=== PATIENT | male | born 1935 | race Caucasian/White ===

== ENCOUNTER → 2016-04-09 | Day surgery (SDC) | payer MEDICARE, OTHER ==
[~2016-04-09] VITALS: Ht 172.7 cm; Wt 96.6 kg
[~2016-04-09] MED LIST: ALLE180T33 PO; AMLO10TA2 PO; BUPIVACAINE/EPIN 0.25% 30 ML VIAL XX ONE; CIPR500T19 PO; CYCL10TA PO; DYAZ37.5 PO; FINA5TAB2 PO; FLUCINONIDE TOP; GLYCOPYRROLATE INJ 0.2 MG/ML 2 ML VIAL As Ordered ONE; HYDR25TAB PO; HYDROmorphone HCL 2 MG/ML 1ML VIAL (J1170) As Ordered ONE; LANS30CA PO; LIDOCAINE 2% INJ 100 MG/5 ML SDV (FOR ANES.) As Ordered ONE; LOVA1CAP17 PO; LR 1,000 ML IV SCH; MIDAZOLAM INJ 2 MG/2 ML VIAL (J2250) As Ordered ONE; MOME50SP; MORPHINE 2 MG/ML 1ML SYRINGE IV PRN; NEOSTIGMINE 1MG/ML 5 ML SYRINGE (J2710) As Ordered ONE; NORCO, ANEXSIA 5/325MG TABLET (HYDROcodone/ACETAMINOPHEN) PO PRN; ONDANSETRON 4MG/2ML VIAL (J2405) As Ordered ONE; ONDANSETRON 4MG/2ML VIAL (J2405) IV PRN; PERCOCET 5MG/325MG TAB PO PRN; PRAV40TA2 PO; PROPOFOL 200 MG/20 ML VIAL As Ordered ONE; QUIN40TA5 PO; ROCURONIUM BROMIDE 50 MG/5 ML VIAL As Ordered ONE; ROXI1TAB2 PO; TAMS0.4C2 PO; TYLE650T25 PO; ceFAZolin 1GM INJ (J0690) As Ordered ONE; ceFAZolin SOD 1 GM in D5W MINI-BAG PLUS 50 ML IV ONE; dexameTHASONE 4 MG/ML 1ML VIAL (J1100) As Ordered ONE; fentaNYL 100 MCG/2 ML INJECTION (J3010) IV PRN; fentaNYL 250 MCG/5 ML INJECTION (J3010) As Ordered ONE
[2016-04-09 14:15] VITALS: BP 164/77
--- NOTE | 2016-04-09 14:29 | RO ---
DATE OF PROCEDURE: 04/09/2016 PREPROCEDURE DIAGNOSIS: Left inguinal hernia. POSTPROCEDURE DIAGNOSIS: Left inguinal hernia. PROCEDURE: Open left inguinal hernia repair with mesh. SURGEON: Ki Cardenas MD [employer] OPERATOR: Dr. Butt (helped with retraction, exposure and placement of mesh). ANESTHESIA: General endotracheal anesthesia. ESTIMATED BLOOD LOSS: Minimal. Fluids crystalloid. DESCRIPTION OF PROCEDURE: The patient was brought to the operating room and was given general anesthesia. After adequate anesthesia and preoperative antibiotics were given, the patient was prepped and draped in the usual sterile fashion. Next, a left inguinal incision was made with skin knife. Electrocautery was used cut through dermis, underlying subcutaneous tissue down to the fascia itself. External oblique muscle fascia was opened along the length and out through the external ring. The external oblique was grasped on hemostats and retracted superiorly and inferiorly, and the incision was continued through the external ring with electrocautery on the fascia with my finger underneath this protecting the underlying structures. Next, the patient had been placed in a significant amount of Trendelenburg position, but despite this still had a great deal of tissue/hernia within the left inguinal canal. This was able to be dissected off the cord structures. There is a lipoma of the cord that was dissected free, ligated at its base and then the hernia sac was seen, however, much of this was very attenuated and either was just thickened tissue itself, but the colon was within the hernia and essentially did not open up into the peritoneum as a typical indirect hernia with colon coming down into it and thus I anticipate was in the retroperitoneal position and this was able to be mobilized off surrounding structures and then returned to the peritoneal cavity. However, there was a very large fascial defect at the internal ring, thus a Prolix plug was placed in this area and the edges were sutured superiorly and medially with PDS. However, the vessels were palpated posteriorly and thus a posterior cyst was not placed, i.e. to the floor of the canal area. Next, cord structures were elevated off the transverse abdominis muscle, which was somewhat attenuated medially. The UltraPro mesh was cut to the appropriate size and sutured in with multiple interrupted #2-0 PDS, starting at pubis laterally along the inguinal ligament and medially with Secure Strap. The tails of the mesh were brought together with #2-0 PDS and taking care to make sure that this was able to allow a finger at the internal ring. The patient had very thick cord structure on the left-hand side with a great amount of adipose tissue, which was consistent with all of his morbid obesity issues. In any case, the external oblique was closed with #2-0 Vicryl, #3-0 Vicryl was used to close Jamila's and dermis, #4-0 Vicryl was used to approximate the skin. Steri-Strips and dry sterile dressing was applied. The patient was awakened, extubated, brought to recovery room awake, alert, hemodynamically stable. Sponge and needle counts correct times two.
== END | disposition home or self-care (01) ==
LOC: M SDC 07:16
PROVIDERS: ATTEND Surgery
DX: K40.90 Unilateral inguinal hernia, without obstruction or gangrene, not specified as recurrent (principal); I10 Essential (primary) hypertension; E78.5 Hyperlipidemia, unspecified; K44.9 Diaphragmatic hernia without obstruction or gangrene; E78.00 Pure hypercholesterolemia, unspecified; Z85.46 Personal history of malignant neoplasm of prostate; Z79.899 Other long term (current) drug therapy
CPT/HCPCS: 49505; C1781; J0690; J1100; J1170; J2250; J2405; J2710; J3010